=== PATIENT | male | born 1990 | race Hispanic/Latino ===

== ENCOUNTER 2016-12-19 16:07 | Emergency (ER) | payer SELFPAY ==
[~2016-12-19] VITALS: Ht 180.3 cm; Wt 81.8 kg
[2016-12-19] VITALS (17 sets, daily range): BP systolic 95–208; BP diastolic 42–94; PULSE 85–144; RESP 30–50; O2SAT 96–100
[~2016-12-19 16:07] MED LIST: Vancomycin Dose per Pharmacist XX ONE
--- NOTE | 2016-12-19 16:42 | ED.REPORT ---
HPI-General Illness Date of Service Dec 19, 2016 ED Provider: Derrek Morton DO Pt is a 26 y/o male with a history of IVDA who presents to the ED c/o upper back pain onset yesterday. Pt is a IV drug user and states that he used this morning. He describes his pain as worse when laying down, and is partially relieved when standing up. His cousin also tried to pop his back this morning. Additional symptoms include fever, malaise, chest pain, and foot pain. He denies cough, numbness/tingling in legs, or abdominal pain. Nursing Notes Stated Complaint: BACK/CHEST/BILATERAL FOOT PAIN Chief Complaint: General Complaint Nursing Notes Reviewed: Yes Allergies: Coded Allergies: No Known Allergies (Verified Allergy, Unknown, 12/19/16) General Time Seen by MD: 16:42 Chief Complaint Back pain Hx Obtained From: Patient, Other family... (Mother) Arrived By: Walk-in Sudden in Onset?: No Onset Occurred: Yesterday Symptom Duration: Constant Location: : Back Quality: Painful Severity: Current: Severe Severity: Maximum: Severe Recent Healthcare: No recent doctor visit, No recent hospitalization Similar Sx Previous: No Past Medical History Past Medical History IV drug abuse - heroin Past Surgical History Denies Smoking History Never Smoker Social History IV heroin abuse Alcohol Use: Denies alcohol use Drug Use: IV drugs, Other Ambulatory Status Independent Review of Systems Full Review of Systems Constitutional: Reports: Fever, Malaise Respiratory: Denies: Non-productive cough, Prod cough, clear Cardiovascular: Reports: Chest pain GI: Denies: Abdominal pain Musculoskeletal: Reports: Extremity pain, Thoracic pain Neurologic: Denies: Numbness, Weakness Complete sys rev & neg: except as marked. Physical Exam Vital Signs Vital Signs Date Time Temp Pulse Resp B/P Pulse Ox O2 Delivery O2 Flow Rate FiO2 12/19/16 18:24 139 30 208/72 100 BiPAP 12/19/16 18:15 50 96 24 12/19/16 17:43 139 43 103/48 96 Nasal Cannula 2 12/19/16 16:20 37.6 144 100/63 98 Room Air Initial VS: Reviewed, Vital signs abnormal Head / Eyes: Atraumatic, Normocephalic ENT: Mucous membranes moist, Conjunctiva normal Neck: Supple, Full range of motion Abdomen / GI: Soft, Non-tender, No guarding, No rebound, No distention Extremities: Vascular intact, Neuro intact, No swelling, No tenderness Skin: Dry, No cyanosis Neurologic: Alert, Oriented, Nonfocal Psychiatric: Mood/affect normal, Behavior normal, Normal thought content General/Constitutional: Awake, Alert, Cooperative Distress / Hydration: Positive: Distress moderate Appearance / Presentation: Positive: Ill appearing/not toxic Febrile Respiratory / Chest: No stridor Tachypneic at 44 respirations per minute Diminished breath sounds at lung bases Cardiovascular: Regular rhythm, Heart sounds NL, No murmurs, Peripheral circulation NL, Pulses = bilaterally Heart Rate / Rhythm: Positive: Tachycardia Back: Atraumatic Vague midthoracic tenderness Interpretation & Diagnostics Lab Results Interpretation Result Diagram: 12/19/16 1705 12/19/16 1644 Test 12/19/16 16:44 12/19/16 17:05 12/19/16 18:18 Erythrocyte Sedimentation Rate 8mm/hr (0-15) Prothrombin Time 12.3sec (8.1-12.5) Prothromb Time International Ratio 1.15ratio Sodium Level 127mEq/L (134-144) Potassium Level 4.2mEq/L (3.5-5.2) Chloride Level 94mEq/L (97-108) Carbon Dioxide Level 16mmol/L (18-29) Blood Urea Nitrogen 21mg/dL (6-20) Creatinine 0.51mg/dL (0.76-1.27) Estimat Glomerular Filtration Rate 206mL/min (>59) Glucose Level 152mg/dL (60-99) Calcium Level 7.2mg/dL (8.5-10.1) Magnesium Level 2.0mg/dL (1.6-2.6) Total Bilirubin 2.3mg/dL (0.0-1.2) Aspartate Amino Transf (AST/SGOT) 86U/L (0-50) Alanine Aminotransferase (ALT/SGPT) 85U/L (0-44) Alkaline Phosphatase 156U/L (25-150) Troponin T < 0.010ug/L (0.0-0.011) Total Protein 6.1g/dL (6.4-8.4) Albumin 2.5g/dL (3.4-5.0) Lipase 16U/L (13-60) Procalcitonin 0.51ng/mL (0.00-0.08) Salicylates Level < 3.0ug/mL (30-250) Acetaminophen Level < 15.0ug/mL Rx (10-25) White Blood Count 13.7th/mm3 (3.8-10.1) Red Blood Count 4.59mil/mm3 (4.40-5.80) Hemoglobin 12.8g/dL (13.8-17.2) Hematocrit 36.8% (41.0-50.0) Mean Corpuscular Volume 80.2fL (81-100) Mean Corpuscular Hemoglobin 27.9pg (27.0-35.0) Mean Corpuscular Hemoglobin Concent 34.8% (32.0-37.0) Red Cell Distribution Width 14.3% (12.3-15.4) Platelet Count 131bil/L (150-400) Neutrophils (%) (Auto) 81.2% (40-74) Lymphocytes (%) (Auto) 6.0% (14-46) Monocytes (%) (Auto) 9.2% (4-12) Eosinophils (%) (Auto) 1.2% (0-5) Basophils (%) (Auto) 0.1% (0-3) ECG Interpretation ECG Interpretation: Sinus tachycardia, rate 139 Time: 17:40 Interpreted by: ED physician Normal ECG Interpretation: No acute ischemic changes, Normal QRS, Normal axis, Normal intervals, Adequate tracing ABG Interpretation ABG Interpretation: pH ____7.489 - 7.350 7.450 pCO2 ___28.8__ -mmHg 35.0 45.0 pO2 ___52.8__ -mmHg 69.0 116 HCO3- ___21.7__ -mmol/L 22.0 26.0 ABE ___-0.4__ -mmol/L -2.0 2.0 tHb ___11.7__ -g/dL 12.0 18.0 O2Hb ___87.5__ -% COHb ____1.1__ -% 0.0 1.5 MetHb ____0.8__ -% 0.4 1.5 sO2 ___89.2__ -% 25.0 FIO2 ___28.0__ -% Exam Performed by: Allied health pract Exam Interpreted by: ED physician Indication: Respiratory distress X-Ray Chest Interpretation Chest Xray Interpretation: IMPRESSION: Patchy bilateral airspace opacity suspicious for multilobar pneumonia or septic emboli. Small left-sided pleural effusion. Dictated by: Juanita Bird MD, PhD on 12/19/2016 at 17:53 Approved by: Juanita Bird MD, PhD on 12/19/2016 at 17:54 View: Portable, 1 view Interpretation / Wet Read by: Interpret - Radiologist X-Ray Interpretation Xray Interpretation: X-Ray Thoracic Spine: IMPRESSION: No acute osseous lesion. If there are persistent symptoms or clinical suspicion for pathology, then repeat radiographs or advanced imaging (CT, MRI or bone scan) should be considered for further evaluation. Dictated by: Juanita Bird MD, PhD on 12/19/2016 at 17:52 Approved by: Juanita Bird MD, PhD on 12/19/2016 at 17:53 Interpretation / Wet Read by: Interpret - Radiologist Procedures Peripheral / EJ IV Start Peripheral / EJ IV Start: Dark, non-pulsatile blood return Time: 16:59 Procedure Performed by: ED physician Type of Catheter: Single lumen Size of Catheter: #20 (1 and 3/4 inch) # of Attempts: 1 IV Site: External jugular right Skin Preparation Agent: Hibiclens - Chlorhexidine Re-Eval/Medical Decision Med Decision/Clinical Course Patient presents in shock likely from IV drug related infection. Patient was urgently placed on BiPAP and will need a central line. There are no beds available for the level of care this patient needs and ultimately this patient will be transferred to [place]. Care is transferred to Dr. Justice for further management and stabilization. Source of Hx: Old records Time of Eval: 16:58 Patient Status: Condition improved Re-Evaluation/Progress Note: Pt rechecked. Performed EJ IV start procedure. Time of Eval: 17:50 Patient Status: Condition improved Re-Evaluation/Progress Note: Pt rechecked. Pt reports taking a few ibuprofen for his fever, but never Tylenol or aspirin. He has never been tested for hepatitis. Time of Eval: 18:03 Patient Status: Condition worsened Re-Evaluation/Progress Note: Pt rechecked. RR increased to 60. Plan to place on BiPAP. Plan for cental line placement. Time of Eval: 18:07 Patient Status: Condition improved Re-Evaluation/Progress Note: Pt rechecked. Tolerated BiPAP well although RR remains 45-50. He verbally consents to central line. Consultation : Call Returned at: 18:44 Note: kenya hurd, hospitalist at [place], accepts admit, will call back with a bed Counseled Regarding: Diagnosis, Lab results, Need for admission Discharge & Departure Primary Impression: Sepsis Sepsis type: sepsis due to unspecified organism Qualified Code: A41.9 - Sepsis, unspecified organism Additional Impressions: Multifocal pneumonia IV drug abuse Respiratory failure Chronicity: acute Respiratory failure complication: hypoxia Qualified Code : J96.01 - Acute respiratory failure with hypoxia Thoracic back pain Chronicity: acute Back pain laterality: bilateral Qualified Code: M54.6 - Pain in thoracic spine Acute liver failure Hepatic coma status: without hepatic coma Qualified Code: K72.00 - Acute and subacute hepatic failure without coma Disposition: ADMITTED TO HOSPITAL Discharge Condition All VS Reviewed: Yes Condition: Critical Referrals: Duarte Delgado MD (PCP) Care Transferred to: Dr. Justice Care Transferred at: 18:18 Crit Care Except Billable Proc Time Spent: 105-134 minutes Services Performed: Patient management by me, Time spent at bedside, Reviewing test results, Reviewing imaging, Discussing patient care, Documentation in record, Time with fam/surrogate Critical Care Notes: 1 hr 20 minutes Scribe Attestation Portions of this note were transcribed by Zofia Seth and Tacos Hankins. I, Dr. Morton, personally performed the history, physical exam and medical decision-making; I reviewed and confirmed the accuracy of the information in the transcribed note. copies to: Duarte eDlgado MDDerrek Matteo BARRY Dec 19, 2016 16:42 Zofia Seth Dec 19, 2016 16:52 TACOS HANKINS Dec 19, 2016 17:39
[2016-12-19] MEDS ORDERED: 0.9% Sodium Chloride 1,000 ML IV SCH ×2 (16:55→20:00)
[2016-12-19] MEDS ORDERED: 0.9% Sodium Chloride 1,000 ML IV ONE (17:04)
[2016-12-19 17:20] LABS: BASOPHILS % (AUTO) 0.1 % (0-3); EOSINOPHILS % (AUTO) 1.2 % (0-5); MONOCYTES % (AUTO) 9.2 % (4-12); Mean Corpuscular Hemoglobin 27.9 pg (27.0-35.0); Mean Corpuscular Volume 80.2 fL (81-100); NEUTROPHILS % (AUTO) 81.2 % (40-74); Platelet Count 131 bil/L (150-400)
[2016-12-19 17:38] LABS: INR 1.15 ratio
[2016-12-19] MEDS ORDERED: Piperacillin-Tazo 3.375 Gm Inj 3.375 GM in Dextrose 5% Minibag Plus 50 ML IV ONE (17:40)
[2016-12-19] MEDS ORDERED: Ondansetron 2 mg/mL 2 mL Inj IVPUSH PRN (17:45)
--- NOTE | 2016-12-19 17:55 | DRSVH ---
PROCEDURE: X-RAY THORACIC SPINE, 3 VIEWS INDICATIONS: back pain fever, ivda TECHNIQUE: 3 views of the thoracic spine were acquired. COMPARISON: None. FINDINGS: Bones: No fractures or dislocations. No suspicious bony lesions. 12 pairs of ribs are noted, and a ppear intact where visualized. No lytic lesions identified. Soft tissues: No paravertebral stripe thickening. IMPRESSION: No acute osseous lesion. If there are persistent symptoms or clinical suspicion for path ology, then repeat radiographs or advanced imaging (CT, MRI or bone scan) should be considered for fu rther evaluation. Dictated by: Juanita Bird MD, PhD on 12/19/2016 at 17:52 Approved by: Juanita Bird MD, PhD on 12/19/2016 at 17:53
--- NOTE | 2016-12-19 17:56 | DRSVH ---
PROCEDURE: X-RAY CHEST ONE VIEW, PORTABLE ([id number]) INDICATIONS: RESP DISTRESS FEVER TECHNIQUE: One view of the chest was acquired. COMPARISON: None. FINDINGS: Surgical changes and devices: None. Lungs and pleura: Small left-sided pleural fluid collection noted. Patchy opacities noted in the elmer ngs bilaterally suspicious for multilobar pneumonia or septic emboli. Mediastinum: Mediastinal contours appear normal. Heart size is normal. Bones and chest wall: No suspicious bony lesions. Overlying soft tissues appear unremarkable. IMPRESSION: Patchy bilateral airspace opacity suspicious for multilobar pneumonia or septic emboli. Small left-sided pleural effusion. Dictated by: Juanita Bird MD, PhD on 12/19/2016 at 17:53 Approved by: Juanita Bird MD, PhD on 12/19/2016 at 17:54
[2016-12-19] MEDS ORDERED: Vancomycin Inj 1,750 MG in 0.9% Sodium Chloride 500 ML IV ONE (18:00)
[2016-12-19 18:02] LABS: TROPONIN T < 0.010 ug/L (0.0-0.011)
--- NOTE | 2016-12-19 18:13 | ABG ---
DateTimeAnalyzed 18:06:00 -_ pH ____7.489 - 7.350 7.450 pCO2 ___28.8__ -mmHg 35.0 45.0 pO2 ___52.8__ -mmHg 69.0 116 HCO3- ___21.7__ -mmol/L 22.0 26.0 ABE ___-0.4__ -mmol/L -2.0 2.0 tHb ___11.7__ -g/dL 12.0 18.0 O2Hb ___87.5__ -% COHb ____1.1__ -% 0.0 1.5 MetHb ____0.8__ -% 0.4 1.5 sO2 ___89.2__ -% 25.0 FIO2 ___28.0__ -% Drawn By jmw - Date/Time Notified____ 18:12:00 -_ Oxygen Device 1 __CANNULA - Notified By jmw - Notified Whom DR OKELLY - B 756 -mmHg tO2 ___14.4__ -Vol% Momo test _Positive -
[2016-12-19] MEDS ORDERED: Phenylephrine/NS 100 mCg/mL 10 mL Syringe IVPUSH ONE (18:25)
[2016-12-19] MEDS ORDERED: Succinylcholine Chloride 20 mg/mL 5 mL Inj IVPUSH ONE (18:25)
[2016-12-19 19:39] LABS: APPEARANCE,URINE CLEAR (CLEAR,HAZY); COLOR,URINE YELLOW (YELLOW); OCCULT BLOOD,URINE SMALL (NEGATIVE); UROBILINOGEN,URINE 4 mg/dL (NORMAL)
[2016-12-19] MEDS: Norepineph 8,000 mCg/250 mL NS 8,000 MCG in IV Premix 1 EACH IV SCH ×2 (20:00→20:10)
--- NOTE | 2016-12-19 20:05 | ABG ---
DateTimeAnalyzed 19:59:00 -_ pH ____7.479 - 7.350 7.450 pCO2 ___30.4__ -mmHg 35.0 45.0 pO2 352 -mmHg 69.0 116 HCO3- ___22.3__ -mmol/L 22.0 26.0 ABE ___-0.2__ -mmol/L -2.0 2.0 tHb ___11.2__ -g/dL 12.0 18.0 O2Hb ___98.3__ -% COHb ____0.4__ -% 0.0 1.5 MetHb ____0.9__ -% 0.4 1.5 sO2 ___99.6__ -% 25.0 FIO2 __100.0__ -% CPAP ___12.0__ -cmH2O PEEP ____5.0__ -cmH2O Set_RR ___16.0__ -b/min Drawn By MM - Date/Time Notified____ 20:05:00 -_ Spontaneous_RR ___39.0__ -b/min Oxygen Device 1 ____BIPAP - Notified By MM - Notified Whom __DR BEIA - B 756 -mmHg tO2 ___16.4__ -Vol% Momo test N/A -
[2016-12-20 08:11] LABS: Hepatitis A Antibody IgM Negative (Negative); Hepatitis B Core Antibody IgM Negative (Negative)
== END 2016-12-19 22:29 | disposition short-term general hospital (02) ==
LOC: SED 16:07
DX: A41.9 Sepsis, unspecified organism (principal); J18.9 Pneumonia, unspecified organism; F19.10 Other psychoactive substance abuse, uncomplicated; J96.01 Acute respiratory failure with hypoxia; K72.00 Acute and subacute hepatic failure without coma; M54.6 Pain in thoracic spine
CPT/HCPCS: 36415; 36556; 36620; 71010; 72072; 80053; 81000; 82375; 82803; 83605; 83690; 83735; 84145; 84484; 85025; 85610; 85651; 86705; 86709; 87040; 87077; 87150; 87186; 87340; 87341; 93005; 94660; 94799; 96361; 96365; 96367; 96375; 99291; 99292; G0472; G0480; J2270; J2543; J3370; J7030; J7040